=== PATIENT | male | born 1990 | race Caucasian/White ===

== ENCOUNTER 2025-01-27 06:20 | Emergency (ER) | payer BC, MEDICAID ==
[~2025-01-27] VITALS: Ht 157.5 cm; Wt 55.0 kg
[2025-01-27 06:26] VITALS: BP 124/84; PULSE 64; RESP 16; TEMP 36.7; O2SAT 98
[2025-01-27 08:27] LABS: CLARITY URINE CLEAR (CLEAR); COLOR URINE YELLOW (YELLOW); GLUCOSE URINE NEGATIVE (NEGATIVE); KETONES URINE NEGATIVE (NEGATIVE); LEUKOCYTE ESTERASE URINE 3+ (NEGATIVE); NITRITE URINE NEGATIVE (NEGATIVE); OCCULT BLOOD URINE NEGATIVE (NEGATIVE); PROTEIN URINE NEGATIVE (NEGATIVE); UROBILINOGEN URINE 0.2 E.U./dL (0.2-1.0)
[2025-01-27 08:30] LABS: CHLORIDE 102 mEq/L (98-107); SODIUM 139 mEq/L (136-145)
[2025-01-27 08:31] LABS: CALCIUM 9.3 mg/dL (8.7-10.4); CARBON DIOXIDE 30 mEq/L (21-32)
[2025-01-27 08:36] LABS: CREATININE 0.6 mg/dL (0.6-1.3); GLUCOSE 121 mg/dL (70-105); UREA NITROGEN BLOOD 11 mg/dL (9-23)
[2025-01-27 08:38] LABS: ALANINE AMINOTRANSFERASE 14 IU/L (10-49); ALBUMIN 4.2 g/dL (3.2-4.8); ASPARTATE AMINOTRANSFERASE 23 IU/L (<34); BILIRUBIN DIRECT 0.2 mg/dL (<=3.0); BILIRUBIN TOTAL 0.8 mg/dL (0.1-1.0); PROTEIN TOTAL 7.4 g/dL (6.0-8.3)
[2025-01-27 08:51] LABS: BASOPHILS % 0.4 % (0.0-2.0); EOSINOPHILS % 3.3 % (0.0-5.0); HEMATOCRIT. 42.7 % (42.0-52.0); HEMOGLOBIN. 14.1 g/dL (14.0-18.0); LYMPHOCYTES % 19.9 % (20.0-50.0); MEAN CORPUSCULAR HEMOGLOBIN 29.3 pg (28.0-32.0); MEAN CORPUSCULAR VOLUME 88.6 fL (80.0-94.0); MONOCYTES % 7.4 % (2.0-8.0); RED BLOOD CELL COUNT 4.81 mill/uL (4.7-6.1)
[2025-01-27 09:02] LABS: DIFFERENTIAL COMMENT 1
[2025-01-27 09:27] LABS: BACTERIA URINE 1+; RBC URINE NONE SEEN /hpf (0-2); SQUAMOUS EPITHELIAL CELL URINE NONE SEEN /lpf (RARE/1+); YEAST URINE NONE SEEN
[2025-01-27] MEDS ORDERED: CEPH500C2 MT (09:49)
[2025-01-27 09:52] LABS: PLATELET 138 x1000/uL (130-400)
== END 2025-01-27 10:08 | disposition home or self-care (01) ==
LOC: ER 06:20
DX: N39.0 Urinary tract infection, site not specified (principal); J45.909 Unspecified asthma, uncomplicated; Z88.0 Allergy status to penicillin
CPT/HCPCS: 36415; 74018; 80048; 80076; 81003; 85025; 99284